=== PATIENT | female | born 1985 | race Caucasian/White ===

== ENCOUNTER 2018-07-14 17:19 | Emergency (ER) | payer BC ==
[~2018-07-14] VITALS: Ht 147.3 cm; Wt 104.3 kg
[~2018-07-14 17:19] MED LIST: BAYER PLUS500 MG PO; CALCI-CHEW500 MG PO; CIPRO 500MG TA500 MG PO; DUO-KAPS1 CAP PO; MACROBID 100 M100 MG PO; NO HOME MEDICATIONS; PHENAZOPYRIDIN200 M1 PO; PROVERA10 MG PO; TYLENOL 500MG500 MG PO
[2018-07-14 18:31] LABS: EOS # 0.1 (0.04-0.40); EOS % 0.9 % (1.0-5.0); HEMATOCRIT 40.1 % (37.0-47.0); HEMOGLOBIN 13.4 g/dL (12.5-16.0); LYMPH# 2.6 (1.50-4.00); MEAN CELL VOLUME 81 fl (78-100); MEAN CORPUSCULAR HEMOGLOBIN 27 pg (27-31); MEAN CORPUSCULAR HGB CONC 33 g/dL (33-37); MEAN PLATELET VOLUME 9.3 fl (7.4-10.4); MONO # 0.8 (0.20-0.80); NEU # 6.4 (1.40-6.50); PLATELET COUNT 251 K/mm3 (130-400); RED BLOOD COUNT 4.96 M/mm3 (4.10-5.30); RED CELL DISTRIBUTION WIDTH 13.2 % (11.5-14.5); WHITE BLOOD COUNT 9.9 K/mm3 (4.8-10.8)
[2018-07-14 18:46] LABS: ALBUMIN 4.2 g/dL (3.5-5.0); CALCIUM 8.9 mg/dL (8.4-10.2); POTASSIUM 3.5 mmol/L (3.6-5.0); TOTAL BILIRUBIN 0.8 mg/dL (0.2-1.3); TOTAL PROTEIN 7.4 g/dL (6.3-8.2)
[2018-07-14 19:42] LABS: ERYTHROCYTE SEDIMENTATION RATE 40 mm/hr (0-20)
[2018-07-14 20:10] LABS: PH-URINE 5.5 (5.0 - 8.0); URINE APPEARANCE CLOUDY; URINE BILIRUBIN NEGATIVE (NEGATIVE); URINE BLOOD 50 ery/uL (NEGATIVE); URINE COLOR DARK YELLOW; URINE GLUCOSE NEGATIVE (NEGATIVE); URINE KETONE TR (NEGATIVE); URINE LEUKOCYTE ESTERASE 2+ (NEGATIVE); URINE NITRATE NEGATIVE (NEGATIVE); URINE PROTEIN(semi-quant) 1+ mg/dL (NEGATIVE); URINE UROBILINOGEN 8 mg/dL (NORMAL); URINE WBC >50 /hpf (0-3)
[2018-07-14] MEDS ORDERED: CIPRO 500MG TA500 MG PO (21:12)
[2018-07-14 23:32] VITALS: BP 130/75
== END 2018-07-14 23:32 | disposition home or self-care (01) ==
LOC: ED 17:19
PROVIDERS: Nurse Practitioner Family
DX: N12 Tubulo-interstitial nephritis, not specified as acute or chronic (principal); E28.2 Polycystic ovarian syndrome; Z87.891 Personal history of nicotine dependence; Z88.5 Allergy status to narcotic agent; Z88.2 Allergy status to sulfonamides; Z88.8 Allergy status to other drugs, medicaments and biological substances
CPT/HCPCS: J0744; J1885; J2405; J7030

== ENCOUNTER → 2018-12-07 | Outpatient (CLI) | payer BC ==
[~2018-12-07] VITALS: Ht 230 cm; Wt 104.3 kg
[~2018-12-07] MED LIST changes: +GLUCOPHAGE PO; +NATURE'S BLEND1 TA6 PO; +NORGESTIMATE AN1 TA1 PO; +PROAIR HFA0.09 MG/AC IH; +VITAMIN B-121000 MC1 SL
[2018-12-07 12:36] VITALS: BP 112/63
[2018-12-07 13:07] LABS: HEMATOCRIT 40.5 % (37.0-47.0); HEMOGLOBIN 13.4 g/dL (12.5-16.0); MEAN CELL VOLUME 79 fl (78-100); MEAN CORPUSCULAR HEMOGLOBIN 26 pg (27-31); MEAN CORPUSCULAR HGB CONC 33 g/dL (33-37); MEAN PLATELET VOLUME 8.9 fl (7.4-10.4); PLATELET COUNT 311 K/mm3 (130-400); RED CELL DISTRIBUTION WIDTH 13.2 % (11.5-14.5); WHITE BLOOD COUNT 10.3 K/mm3 (4.8-10.8)
[2018-12-07 13:47] LABS: ALBUMIN 3.6 g/dL (3.5-5.0); ALT/SGPT 14 U/L (0-55); AST-SGOT 15 U/L (5-34); CALCIUM 9.3 mg/dL (8.4-10.2); CARBON DIOXIDE 25 mmol/L (22-29); GLUCOSE 119 mg/dL (65-105); POTASSIUM 3.8 mmol/L (3.5-5.1); SODIUM 139 mmol/L (136-145); TOTAL BILIRUBIN 0.4 mg/dL (0.2-1.2); TOTAL PROTEIN 6.6 g/dL (6.4-8.3)
[2018-12-07 13:49] LABS: TROPONIN-I < 0.03 ng/mL (<0.030)
[2018-12-07 15:32] VITALS: BP 135/84
== END | disposition still patient (30) ==
LOC: AMSURD 12:19
PROVIDERS: Nurse Practitioner Family
DX: E86.0 Dehydration (principal); R05 Cough; R53.1 Weakness; R51 Headache; R53.83 Other fatigue; R68.89 Other general symptoms and signs
CPT/HCPCS: J7030